=== PATIENT | female | born 1980 | race Caucasian/White ===

== ENCOUNTER 2019-07-06 22:00 | Emergency (ER) | payer OTHER ==
[~2019-07-06] VITALS: Ht 160 cm; Wt 74.8 kg
[~2019-07-06 22:00] MED LIST: PRENATAL1 TAB PO
== END 2019-07-07 06:08 | disposition home or self-care (01) ==
LOC: ER 22:00
DX: R30.0 Dysuria (principal); R10.12 Left upper quadrant pain

== ENCOUNTER 2021-01-27 12:56 | Outpatient (CLI) | payer OTHER | END 2021-01-27 13:25 | disposition home or self-care (01) | LOC: OFIC 805 12:56 | PROVIDERS: ATTEND Otolaryngology Otology & Neurotology | DX: I88.8 Other nonspecific lymphadenitis (principal); M54.2 Cervicalgia ==